=== PATIENT | female | born 1985 | race Caucasian/White ===

== ENCOUNTER 2023-10-10 05:07 | Emergency (ER) | payer MEDICAID ==
[~2023-10-10] VITALS: Ht 160 cm; Wt 69.4 kg
[2023-10-10 05:09] VITALS: TEMP 98.3
[2023-10-10 05:24] VITALS: RESP 14; O2SAT 99
[2023-10-10] MEDS: azithromycin 250mg tablet PO ONE (05:54)
[2023-10-10] MEDS ORDERED: AZIT250T PO (05:59)
[2023-10-10 06:20] VITALS: BP 98/71; PULSE 56
== END 2023-10-10 06:22 | disposition home or self-care (01) ==
LOC: ER 05:08
DX: R05.9 Cough, unspecified (principal); Z79.899 Other long term (current) drug therapy
CPT/HCPCS: 71045; 99283